=== PATIENT | female | born 1955 | race Two or more races ===

== ENCOUNTER 2018-10-17 10:05 | Outpatient (CLI) | payer OTHER ==
[~2018-10-17] VITALS: Ht 167.6 cm; Wt 74.8 kg
== END 2018-10-17 10:20 | disposition home or self-care (01) ==
LOC: OFIC 805 10:05
DX: L29.8 Other pruritus (principal); H60.599 Other noninfective acute otitis externa, unspecified ear; R07.0 Pain in throat; R68.89 Other general symptoms and signs; K21.0 Gastro-esophageal reflux disease with esophagitis

== ENCOUNTER 2020-09-14 10:18 | Outpatient (CLI) | payer OTHER | END 2020-09-14 15:01 | disposition home or self-care (01) | LOC: OFIC 805 10:18 | PROVIDERS: ATTEND Otolaryngology | DX: R07.0 Pain in throat (principal); J39.2 Other diseases of pharynx; K21.00 Gastro-esophageal reflux disease with esophagitis, without bleeding; L30.8 Other specified dermatitis ==

== ENCOUNTER 2021-01-13 10:03 | Outpatient (CLI) | payer OTHER | END 2021-01-13 10:07 | disposition home or self-care (01) | LOC: RAD 10:03 → MAMO-SONO 10:03 → RAD 10:07 | PROVIDERS: ATTEND Internal Medicine | DX: N64.59 Other signs and symptoms in breast (principal); Z12.31 Encounter for screening mammogram for malignant neoplasm of breast; Z87.898 Personal history of other specified conditions ==

== ENCOUNTER 2024-03-06 12:24 | Emergency (ER) | payer OTHER ==
[~2024-03-06] VITALS: Ht 162.6 cm; Wt 79.4 kg
[2024-03-06] MEDS ORDERED: IRBESARTAN75 MG PO (12:38)
[2024-03-06] MEDS ORDERED: ONDANSETRON HCL 2 MG/ML VIAL IV STA (12:55)
[2024-03-06] MEDS ORDERED: DIPHENHYDRAMINE HCL 50 MG/ML VIAL 1ML ONE (12:59)
[2024-03-06] MEDS ORDERED: METHYLPREDNISOLONE SOD SUCC 125 MG VIAL ONE (12:59)
[2024-03-06] MEDS ORDERED: ONDANSETRON HCL 2 MG/ML VIAL ONE (12:59)
[2024-03-06] MEDS ORDERED: DIPHENHYDRAMINE HCL 50 MG/ML VIAL 1ML IV ONE (13:00)
[2024-03-06] MEDS ORDERED: METHYLPREDNISOLONE SOD SUCC 125 MG VIAL IV ONE (13:00)
[2024-03-06 13:23] LABS: HEMATOCRIT 36.5 % (36.0-45.00); HEMOGLOBIN 12.2 g/dL (12.0-15.00); MEAN CELL VOLUME 85.6 fL (80.00-100.00); MEAN CORPUSCULAR HEMOGLOBIN 28.6 pg (27.00-32.0); MEAN CORPUSCULAR HGB CONC 33.5 g/dl (32.0-36.0); PLATELET COUNT 197 K/uL (150-450); RED BLOOD COUNT 4.26 M/uL (4.00-6.00); RED CELL DISTRIBUTION WIDTH 14.5 % (11.5-14.5)
[2024-03-06 14:14] LABS: CALCIUM 8.9 mg/dL (8.5-10.1); CREATININE SERUM 0.61 mg/dL (0.55-1.02); GFR 97.53; POTASSIUM 3.46 mEq/L (3.5-5.1)
== END 2024-03-06 14:42 | disposition home or self-care (01) ==
LOC: ER 12:24
PROVIDERS: Emergency Medicine
DX: R21 Rash and other nonspecific skin eruption (principal); T78.40XA Allergy, unspecified, initial encounter; R11.10 Vomiting, unspecified; I10 Essential (primary) hypertension
CPT/HCPCS: 36415; 96365; 99282; J1200; J2405; J3490